=== PATIENT | female | born 1985 | race Caucasian/White ===

== ENCOUNTER 2022-11-16 07:55 | Inpatient (IN) | payer OTHER ==
[2022-11-16] MEDS: ELECTROLYTE-148 SOLN 1,000 ML IV SCH ×2 (09:10→10:45)
[2022-11-16] MEDS ORDERED: ELECTROLYTE-148 SOLN 500 ML IV ONE (09:30)
[2022-11-16] MEDS ORDERED: CITRIC ACID/SODIUM CITRATE 30 ML UNIT-DOSE CUP PO ONE (09:30)
[2022-11-16 09:39] VITALS: BMI 30.9
[2022-11-16] MEDS ORDERED: OXYTOCIN 30 UNITS in 0.9% NS 30 UNIT/500 ML INFUS.BAG IVPB ONE (10:16)
[2022-11-16] MEDS ORDERED: METOCLOPRAMIDE HCL INJECTION 10 MG/2 ML VIAL ONE (10:17)
[2022-11-16] MEDS ORDERED: morphine SULFATE (PF) 1 MG/2 ML SYRINGE ONE (10:17)
[2022-11-16] MEDS ORDERED: ONDANSETRON 4 MG/2 ML VIAL ONE (10:17)
[2022-11-16] MEDS ORDERED: FENTANYL CITRATE/PF 50 MCG/ML VIAL ONE (10:17)
[2022-11-16] MEDS ORDERED: ceFAZolin SODIUM 1 GM VIAL ONE (10:17)
[2022-11-16] MEDS ORDERED: morphine SULFATE/PF 1 MG/2 ML (2cc Syringe - QUVA) IT ONE (11:03)
[2022-11-16] MEDS ORDERED: MISOPROSTOL 200 MCG TABLET ONE (11:37)
[2022-11-16] MEDS ORDERED: OXYTOCIN 10 UNITS/ML VIAL ONE (11:40)
[2022-11-16] MEDS: OXYTOCIN 20 UNITS in 0.9% NS 20 UNIT/1,000 ML INFUS.BAG IV SCH ×2 (12:00→15:56)
[2022-11-16 12:21] LABS: CORD HCO3 24.7 mmHg (20-29); CORD PCO2 48.9 mmHg (30-78); CORD pH 7.321 (7.14-7.44)
[2022-11-16] MEDS ORDERED: ONDANSETRON 4 MG/2 ML VIAL IVPUSH PRN (12:30)
[2022-11-16] MEDS ORDERED: ACETAMINOPHEN 325 MG TABLET (FP) PO PRN (13:13)
[2022-11-16] MEDS: CEFAZOLIN SODIUM 2 GM in DEXTROSE 5%-WATER 100 ML IVPB SCH (17:23)
[2022-11-16] MEDS: LABETALOL HCL 200 MG TABLET (FP) PO SCH (21:38)
[2022-11-16] MEDS: MONTELUKAST NA 10 MG TABLET PO SCH (21:38)
[2022-11-17] MEDS: CEFAZOLIN SODIUM 2 GM in DEXTROSE 5%-WATER 100 ML IVPB SCH ×2 (01:04→10:06)
[2022-11-17] MEDS: IBUPROFEN 600 MG TABLET (FP) PO PRN ×3 (03:13→15:09)
[2022-11-17] MEDS: SIMETHICONE 80 MG TAB.CHEW (FP) PO PRN ×4 (03:13→19:45)
[2022-11-17 09:04] LABS: BASO % 0.3 % (0-2.0); EOS % 0.5 % (0-4.5); HEMOGLOBIN 9.5 GM/dL (10.7-15.3); LYMPH % 16.2 % (8-40); MCH 28.6 pg (25.7-33.7); MEAN CELL VOLUME 83.9 fl (80-96); MEAN PLT VOLUME 7.5 fl (7.5-11.1); MONO % 6.1 % (3.8-10.2); NEUT % 76.9 % (42.8-82.8); PLATELET COUNT 251 10^3/uL (134-434); RBC 3.33 M/mm3 (3.60-5.2); RDW 15.5 % (11.6-15.6); WHITE BLOOD COUNT 7.9 K/mm3 (4.0-10.0)
[2022-11-17] MEDS: LABETALOL HCL 200 MG TABLET (FP) PO SCH ×2 (09:46→21:44)
[2022-11-17] MEDS: ENOXAPARIN NA (PORCINE) 40 MG/0.4 ML DISP.SYRIN SQ SCH (09:47)
[2022-11-17] MEDS ORDERED: BISACODYL 10 MG SUPP.RECT RC PRN (13:13)
[2022-11-17] MEDS: oxyCODONE HCL 5 MG TABLET PO PRN (19:45)
[2022-11-17] MEDS: MONTELUKAST NA 10 MG TABLET PO SCH (21:44)
[2022-11-18] MEDS: SIMETHICONE 80 MG TAB.CHEW (FP) PO PRN ×2 (02:36→07:49)
[2022-11-18] MEDS: oxyCODONE HCL 5 MG TABLET PO PRN ×2 (02:36→07:49)
[2022-11-18] MEDS: ENOXAPARIN NA (PORCINE) 40 MG/0.4 ML DISP.SYRIN SQ SCH (09:44)
[2022-11-18] MEDS: LABETALOL HCL 200 MG TABLET (FP) PO SCH ×2 (09:45→21:04)
[2022-11-18] MEDS: IBUPROFEN 600 MG TABLET (FP) PO PRN ×2 (11:14→21:04)
[2022-11-18] MEDS: MONTELUKAST NA 10 MG TABLET PO SCH (21:05)
[2022-11-18] MEDS ORDERED: SENNOSIDES/DOCUSATE COMBO (SENNA PLUS) TABLET (UD) PO PRN (21:31)
[2022-11-19] MEDS: IBUPROFEN 600 MG TABLET (FP) PO PRN ×2 (07:15→12:35)
[2022-11-19] MEDS: ENOXAPARIN NA (PORCINE) 40 MG/0.4 ML DISP.SYRIN SQ SCH (09:36)
[2022-11-19] MEDS: LABETALOL HCL 200 MG TABLET (FP) PO SCH (09:36)
[2022-11-19 10:25] LABS: BASO % 0.4 % (0-2.0); EOS % 1.7 % (0-4.5); HEMATOCRIT 28.9 % (32.4-45.2); HEMOGLOBIN 9.7 GM/dL (10.7-15.3); LYMPH % 22.6 % (8-40); MCH 28.3 pg (25.7-33.7); MCHC 33.7 g/dl (32.0-36.0); MEAN CELL VOLUME 83.9 fl (80-96); MEAN PLT VOLUME 7.3 fl (7.5-11.1); MONO % 4.3 % (3.8-10.2); PLATELET COUNT 321 10^3/uL (134-434); RBC 3.45 M/mm3 (3.60-5.2); RDW 15.2 % (11.6-15.6); WHITE BLOOD COUNT 6.7 K/mm3 (4.0-10.0)
[2022-11-19 12:05] VITALS: BP 143/86; PULSE 68; RESP 17; TEMP 97.6
[2022-11-19] MEDS: SIMETHICONE 80 MG TAB.CHEW (FP) PO PRN (12:34)
== END 2022-11-19 16:15 | disposition home or self-care (01) | DRG 788 ==
LOC: JLDR 07:55 → J3W 14:00
PROVIDERS: ADMIT Obstetrics & Gynecology; ATTEND Obstetrics & Gynecology
PROC: 10D00Z1 Extraction of Products of Conception, Low, Open Approach (ICD-10-PCS; principal; 2022-11-16)
DX: O13.4 Gestational [pregnancy-induced] hypertension without significant proteinuria, complicating childbirth (principal); O99.284 Endocrine, nutritional and metabolic diseases complicating childbirth; E28.2 Polycystic ovarian syndrome; O43.213 Placenta accreta, third trimester; O90.81 Anemia of the puerperium; Z3A.38 38 weeks gestation of pregnancy; Z3A.37 37 weeks gestation of pregnancy; Z37.0 Single live birth
CPT/HCPCS: 36415; 36600; 82803; 85025; 88307-TC